=== PATIENT | female | born 1985 | race Caucasian/White ===

== ENCOUNTER 2017-01-05 15:29 | Emergency (ER) | payer MEDICAID, MEDICARE ==
[2017-01-05 15:29] VITALS: BMI 26.5
[2017-01-05 15:32] VITALS: PULSE 77; RESP 20; TEMP 97.7; O2SAT 98
[2017-01-05 15:33] VITALS: BP 107/67
--- NOTE | 2017-01-05 15:54 | C.PDOC ---
History Of Present Illness 31 year old female presents to Emergency Department for evaluation of intermittent bilateral knee and left shoulder pain described as aching for the past month. Notes taking Tylenol without significant relief. Denies trauma, injury, or change in sensation. Time Seen by Provider: 01/05/17 15:41 Chief Complaint (Nursing): Lower Extremity Problem/Injury History Per: Patient History/Exam Limitations: no limitations Onset/Duration Of Symptoms: Days, Intermittent Episodes Current Symptoms Are (Timing): Still Present Recent travel outside of the [place]: No Additional History Per: Patient Past Medical History Reviewed: Historical Data, Nursing Documentation, Vital Signs Vital Signs: Last Vital Signs Temp 97.7 F 01/05/17 15:29 Pulse 77 01/05/17 15:29 Resp 20 01/05/17 15:29 BP 107/67 01/05/17 15:32 Pulse Ox 98 01/05/17 15:54 Surgical History: - [facility] Procedures EXTRACTION OF POC, CLASSICAL, OPEN APPROACH (02/10/16) LOW CERVICAL (10/30/14) SURG INDUCT 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/30/14) Family History: States: Unknown Family Hx - Social History Hx Tobacco Use: No Hx Alcohol Use: No Hx Substance Use: No - Immunization History Hx Tetanus Toxoid Vaccination: No Hx Influenza Vaccination: No Hx Pneumococcal Vaccination: No Review Of Systems Constitutional: Negative for: Fever, Chills Musculoskeletal: Positive for: Shoulder Pain (left), Leg Pain (bilateral knee pain) Skin: Negative for: Rash, Bruising Neurological: Negative for: Weakness, Numbness Physical Exam - Physical Exam Appears: Non-toxic, No Acute Distress Skin: Warm, Dry, No Ecchymosis (no ecchymosis, erythema, or warmth to bilateral knees or left shoulder) Head: Atraumatic, Normacephalic Eye(s): bilateral: Normal Inspection Oral Mucosa: Moist Respiratory: No Accessory Muscle Use Extremity: Normal ROM (FROM at knee joints and left shoulder joint), No Tenderness, Capillary Refill (less than 2 seconds), No Deformity, No Swelling ( no swelling to knees of left shoulder) Extremity: Bilateral: Atraumatic, Normal Color And Temperature, Normal ROM Pulses: Left Radial: Normal, Right Radial: Normal Neurological/Psych: Oriented x3, Normal Speech, Normal Motor, Normal Sensation Gait: Steady ED Course And Treatment O2 Sat by Pulse Oximetry: 98 (on RA) Pulse Ox Interpretation: Normal Medical Decision Making Medical Decision Making: Patient with aching pain to knees and shoulder, no trauma. Exam was benign, no swelling, no erythema, no tactile warmth or other abnormality. Motrin PO was given. Patient advised to follow up with PCP or clinic for more care and workup for arthritis. Disposition Counseled Patient/Family Regarding: Diagnosis, Need For Followup, Rx Given - Disposition Referrals: [facility] at [facility] [Outside] Disposition: HOME/ ROUTINE Disposition Time: 15:54 Condition: STABLE Additional Instructions: Vaya a peña mdico o la clnica en 2-5 hood sin falta, para mas evaluacin. [place] los medicamentos jonny indicado. Volver a la cheng de emergencia en cualquier momento si los sntomas persisten o empeoran. 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 - Scribe Statement The provider has reviewed the documentation as recorded by the Eugenioibyrn Vergara All medical record entries made by the Scribe were at my direction and personally dictated by me. I have reviewed the chart and agree that the record accurately reflects my personal performance of the history, physical exam, medical decision making, and the department course for this patient. I have also personally directed, reviewed, and agree with the discharge instructions and disposition.
== END 2017-01-05 16:32 | disposition home or self-care (01) ==
LOC: C.ER 15:29
DX: M25.50 Pain in unspecified joint (principal)

== ENCOUNTER 2017-04-05 13:02 | Emergency (ER) | payer MEDICARE, MEDICAID ==
[2017-04-05 13:02] VITALS: BMI 26.5
[2017-04-05 13:15] VITALS: RESP 20
[2017-04-05] MEDS ORDERED: guaiFENesin 100 mg/5 ml Syrup UD PO STA (13:37)
--- NOTE | 2017-04-05 13:39 | C.PDOC ---
History Of Present Illness Zulema Awad is a 31 year old female, with no significant past medical history, who present to the emergency department complaining of fever, body aches, and malaise onset for x2 days. 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 She denies any abdominal pain, vomiting or diarrhea. No further medical complaints. PMD: None provided. Time Seen by Provider: 04/05/17 13:31 Chief Complaint (Nursing): ENT Problem History Per: Patient History/Exam Limitations: no limitations Onset/Duration Of Symptoms: Days (x2) Current Symptoms Are (Timing): Still Present Associated Symptoms: Fever, Other (body aches, malaise. ). denies: Vomiting, Diarrhea Ear Symptoms: Bilateral: None Past Medical History Reviewed: Historical Data, Nursing Documentation, Vital Signs Vital Signs: Last Vital Signs Temp 98.9 F 04/05/17 13:49 Pulse 97 H 04/05/17 13:49 Resp 20 04/05/17 13:49 BP 119/75 04/05/17 13:49 Pulse Ox 100 04/05/17 13:49 - Medical History PMH: No Chronic Diseases Surgical History: - [facility] Procedures EXTRACTION OF POC, CLASSICAL, OPEN APPROACH (02/10/16) LOW CERVICAL (10/30/14) SURG INDUCT 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/30/14) Family History: States: Unknown Family Hx - Social History Hx Tobacco Use: No Hx Alcohol Use: No Hx Substance Use: No - Immunization History Hx Tetanus Toxoid Vaccination: No Hx Influenza Vaccination: No Hx Pneumococcal Vaccination: No Review Of Systems Constitutional: Positive for: Fever, Malaise, Other (body aches) Gastrointestinal: Negative for: Vomiting, Abdominal Pain, Diarrhea Physical Exam - Physical Exam Appears: Well, No Acute Distress Skin: Normal Color, Warm, Dry Head: Atraumatic, Normacephalic Eye(s): bilateral: Normal Inspection, PERRL, EOMI Ear(s): Bilateral: Normal Nose: Normal Oral Mucosa: Moist Throat: Normal Neck: Normal ROM Chest: Symmetrical Cardiovascular: Rhythm Regular, No Murmur Respiratory: Normal Breath Sounds, No Wheezing Gastrointestinal/Abdominal: Normal Exam, Soft, No Tenderness, No Guarding, No Rebound Back: Normal Inspection, No CVA Tenderness, No Vertebral Tenderness, No Paraspinal Tenderness Extremity: Normal ROM, No Deformity, No Swelling Neurological/Psych: Oriented x3 ED Course And Treatment O2 Sat by Pulse Oximetry: 97 (RA) Pulse Ox Interpretation: Normal Progress Note: tamiflu, ibuprofen, robitussin Medical Decision Making Medical Decision Making: Initial Impression: Viral syndrome Initial Plan: --Motrin tab 600 mg PO --Robitussin 100 mg PO --Tamiflu Cap 75 mg PO --reevaluation empiric tx for flu has 2 children 1 and 2 yrs old @ home. instructed to CALL tankroom tender to prescribe prophylactic Tamiflu for both children WITHOUT bringing the children to the Massage Therapy Instructor nor Emergency department asymptomatic for risk of infection in office and ED settings (as described by CDC notices) Disposition Doctor Will See Patient In The: Office Counseled Patient/Family Regarding: Studies Performed, Diagnosis - Disposition Referrals: [facility] [Outside] Disposition: HOME/ ROUTINE Disposition Time: 13:38 Condition: GOOD Additional Instructions: sigue Tamiflu 75 mg dos veces al flores- anti-viral contral el Influenza (epidemico ) Sigue Dayquil/Nyquil o' cualquier equivalente due dice "cold and flu" para las sintomas cada 4-6 horas jonny recetado por el producto Sigue en la [facility] (gratis) jonny necessario Prescriptions: Oseltamivir [Tamiflu] 75 mg PO BID #9 cap Instructions: Influenza (ED) Forms: [facility] (Mohawk) Print Language: BHUTANESE - Clinical Impression Clinical Impression: Influenza-like illness - Scribe Statement Donal Kulkarni Provider Attestation: All medical record entries made by the Scribe were at my direction and personally dictated by me. I have reviewed the chart and agree that the record accurately reflects my personal performance of the history, physical exam, medical decision making, and the department course for this patient. I have also personally directed, reviewed, and agree with the discharge instructions and disposition.
[2017-04-05] MEDS ORDERED: guaiFENesin 100 mg/5 ml Syrup UD ONE ×2 (13:44→13:45)
[2017-04-05 13:49] VITALS: BP 119/75; PULSE 97; TEMP 98.9
[2017-04-05 15:09] VITALS: O2SAT 97
== END 2017-04-05 13:53 | disposition home or self-care (01) ==
LOC: C.ER 13:02
DX: J11.1 Influenza due to unidentified influenza virus with other respiratory manifestations (principal)

== ENCOUNTER 2018-01-09 12:12 | Emergency (ER) | payer MEDICARE, MEDICAID ==
[2018-01-09 12:12] VITALS: BMI 26.5
--- NOTE | 2018-01-09 13:00 | C.PDOC ---
History Of Present Illness 32 year old female presents to the ED for evaluation of sore throat, body aches, nasal congestion, runny nose, and cough for 2 days. Patient reports taking Tylenol for 2 days with no improvement, notes taking the last dose of Tylenol today at approximately 3am. Aches are diffuse. No dysphagia, odynophaiga or change in phonation. No neck stiffness. She notes having insurance, does not have PMD, and did not see a doctor for her current symptoms. Denies fever, vomiting, nausea, diarrhea, sick contact, smoking, drinking, and any other associated symptoms. HPI: Influenza Time Seen by Provider: 01/09/18 12:59 Chief Complaint: Flu-like Symptoms History Per: Patient Exam Limitations: no limitations Onset/Duration Of Symptoms: Days (x2) Past Medical History Reviewed: Historical Data, Nursing Documentation, Vital Signs Vital Signs: Last Vital Signs Temp 99.3 F 01/09/18 12:18 Pulse 95 H 01/09/18 12:18 Resp 18 01/09/18 12:18 BP 117/78 01/09/18 12:18 Pulse Ox 98 01/09/18 12:18 Surgical History: - [facility] Procedures EXTRACTION OF POC, CLASSICAL, OPEN APPROACH (02/10/16) LOW CERVICAL (10/30/14) SURG INDUCT 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/30/14) Family History: States: Unknown Family Hx - Social History Hx Tobacco Use: No Hx Alcohol Use: No Hx Substance Use: No - Immunization History Hx Tetanus Toxoid Vaccination: No Hx Influenza Vaccination: No Hx Pneumococcal Vaccination: No Review Of Systems Constitutional: Positive for: Other (body aches. ). Negative for: Fever, Chills, Sweats, Weakness, Malaise, Weight loss Eyes: Negative for: Pain, Vision Change ENT: Positive for: Nose Discharge, Nose Congestion, Throat Pain (sore. ). Negative for: Ear Pain, Ear Discharge, Nose Pain, Mouth Pain Cardiovascular: Negative for: Chest Pain, Palpitations, Edema Respiratory: Positive for: Cough. Negative for: Shortness of Breath, Pleuritic Pain, Wheezing Gastrointestinal: Negative for: Nausea, Vomiting, Abdominal Pain, Diarrhea, Constipation, Melena Genitourinary: Negative for: Dysuria, Frequency, Incontinence, Hematuria, Vaginal Discharge, Vaginal Bleeding Musculoskeletal: Negative for: Neck Pain, Shoulder Pain, Arm Pain, Back Pain, Hand Pain, Leg Pain, Foot Pain Skin: Negative for: Rash, Lesions Neurological: Negative for: Weakness, Numbness, Incoordination Psych: Negative for: Anxiety Physical Exam - Physical Exam Appears: Well, Non-toxic, No Acute Distress Skin: Warm, Dry Head: Atraumatic, Normacephalic Eye(s): bilateral: Normal Inspection, PERRL, EOMI Ear(s): Bilateral: Normal Nose: Normal, Discharge (rhinorrhea. ) Oral Mucosa: Moist Tongue: Normal Appearing Lips: Normal Appearing Teeth: Normal Dentition Gingiva: Normal Appearing Throat: Normal, No Erythema, No Exudate, No Drooling, No Mass Neck: Normal ROM, Trachea Midline, No Midline Cervical Tenderness, No Paracervical Tenderness, Supple Chest: Symmetrical, No Deformity Cardiovascular: Rhythm Regular, No Murmur Respiratory: Normal Breath Sounds, No Rales, No Rhonchi, No Wheezing Gastrointestinal/Abdominal: Normal Exam, Soft, No Tenderness Back: Normal Inspection, No CVA Tenderness, No Vertebral Tenderness, No Paraspinal Tenderness Extremity: Bilateral: Normal Color And Temperature, Normal ROM (x4) Pulses: Left Radial: Normal, Right Radial: Normal Neurological/Psych: Oriented x3, Normal Speech, Normal Cognition, Normal Cranial Nerves, No Cerebellar Signs, Normal Motor, Normal Sensation, Normal Reflexes Extremity: Right: No Drift, Left: No Drift, Upper: No Drift, Lower: No Drift Medical Decision Making Medical Decision Makin yr old female p/w cough, rhinorrhea, generalized body ache. No posterior lymphdenopathy. No change in phonation or dyphagia or odynphagia. No meningeal signs. Likely viral uri. 1405 labs unremarkable pt in NAD, pt notes improved w tylenol remains w/ out other complaints Lungs remain cta b/l clear for d/c home w/ f/u and return indications. pt agreeable. - ECG O2 Sat by Pulse Oximetry: 98 Disposition - Disposition Referrals: [facility] [Outside] [facility] [Outside] Disposition: HOME/ ROUTINE Disposition Time: 14:05 Condition: GOOD Additional Instructions: CONTINE THE TYLENOL WRITTEN ON THE BOTTLE BRANDT CALLES, thank you for letting us take care of you today. Your provider was Fracisco Cisneros and you were treated for COUGHING. The emergency medical care you received today was directed at your acute symptoms. If you were prescribed any medication, please fill it and take as directed. It may take several days for your symptoms to resolve. Return to the Emergency Department if your symptoms worsen, do not improve, or if you have any other problems. Please contact your doctor or call one of the physicians/clinics you have been referred to that are listed on the Patient Visit Information form that is included in your discharge packet. Bring any paperwork you were given at discharge with you along with any medications you are taking to your follow up visit. Our treatment cannot replace ongoing medical care by a primary care provider outside of the emergency department. Thank you for allowing the [facility] team to be part of your care today. If you had an X-Ray or CT scan: A Radiologist will review the ED reading if any change in treatment is needed we will contact you. If you had a blood, urine, or wound culture: It will take several days for the results, if any change in treatment is needed we will contact you. If you had an STI test: It will take 48 hours for the results. Please call after 1 week if you have not heard back. Instructions: Viral Upper Respiratory Infection, Adult (DC) Forms: [employer] (Jamaican) Print Language: INDONESIAN - Clinical Impression Clinical Impression: Viral URI - Scribe Statement The provider has reviewed the documentation as recorded by the Scribe (Tanya Appiah) Provider Attestation: All medical record entries made by the Scribe were at my direction and personally dictated by me. I have reviewed the chart and agree that the record accurately reflects my personal performance of the history, physical exam, medical decision making, and the department course for this patient. I have also personally directed, reviewed, and agree with the discharge instructions and disposition.
[2018-01-09 14:48] VITALS: BP 118/82; PULSE 89; RESP 20; TEMP 98.9
[2018-01-09 16:17] VITALS: O2SAT 98
== END 2018-01-09 14:49 | disposition home or self-care (01) ==
LOC: C.ER 12:12
DX: J06.9 Acute upper respiratory infection, unspecified (principal)

== ENCOUNTER 2018-04-17 21:41 | Emergency (ER) | payer MEDICAID, MEDICARE ==
[2018-04-17 21:42] VITALS: BMI 26.5
[2018-04-17 22:00] VITALS: BP 134/82; PULSE 98; RESP 20; TEMP 98.8; O2SAT 100
--- NOTE | 2018-04-17 23:48 | C.PDOC ---
History Of Present Illness 32 year old female presents with left lower toothache for the past 2 days. Denies facial swelling, neck swelling, or headache. Time Seen by Provider: 04/17/18 22:08 Chief Complaint (Nursing): Dental Pain History Per: Patient History/Exam Limitations: no limitations Onset/Duration Of Symptoms: Days (2) Current Symptoms Are (Timing): Still Present Quality: Positive for: Aching Recent travel outside of the [place]: No Past Medical History Reviewed: Historical Data, Nursing Documentation, Vital Signs Vital Signs: Last Vital Signs Temp 98.8 F 04/17/18 21:58 Pulse 98 H 04/17/18 21:58 Resp 20 04/17/18 21:58 BP 134/82 04/17/18 21:58 Pulse Ox 100 04/17/18 21:58 Surgical History: - [facility] Procedures EXTRACTION OF POC, CLASSICAL, OPEN APPROACH (02/10/16) LOW CERVICAL (10/30/14) SURG INDUCT 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/30/14) Family History: States: Unknown Family Hx - Social History Hx Tobacco Use: No Hx Alcohol Use: No Hx Substance Use: No - Immunization History Hx Tetanus Toxoid Vaccination: No Hx Influenza Vaccination: No Hx Pneumococcal Vaccination: No Review Of Systems ENT: Positive for: Mouth Pain. Negative for: Mouth Swelling Musculoskeletal: Negative for: Other (Neck swelling) Neurological: Negative for: Headache Physical Exam - Physical Exam Appears: Non-toxic Skin: Normal Color, Warm, Dry Head: Atraumatic, Normacephalic, No Swelling (Facial) Eye(s): bilateral: Normal Inspection Nose: Normal Oral Mucosa: Moist Tongue: Normal Appearing, No Swelling Lips: Normal Appearing Teeth: Other (Impacted left posterior molar) Gingiva: Other (Swelling and erythema surrounding impacted left posterior molar) Throat: Normal, No Erythema Neck: Normal, Supple, No Other (Swelling) Lymphatic: Adenopathy Neurological/Psych: Oriented x3, Normal Speech ED Course And Treatment O2 Sat by Pulse Oximetry: 100 (Room air) Pulse Ox Interpretation: Normal Progress Note: Motrin and penicillin administered. Patient resting comfortably in no acute distress, vitals are stable, will discharge home with Rx and instructions to follow up with dental clinic. Disposition - Disposition Referrals: [facility] [Outside] Disposition: HOME/ ROUTINE Disposition Time: 05:24 Condition: STABLE Additional Instructions: PLEASE FOLLOW UP WITH A DENTIST TAKE MEDICATIONS DIRECTED RETURN TO ER IF WORSE Prescriptions: Ibuprofen [Motrin Tab] 800 mg PO QID #30 tab Penicillin VK [Penicillin VK Tab] 2 tab PO BID #28 tab Instructions: Impacted Tooth (DC), Dental Pain (DC) Forms: [employer] 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 - Scribe Statement The provider has reviewed the documentation as recorded by the Scribyrn Soto All medical record entries made by the Nelsy were at my direction and personally dictated by me. I have reviewed the chart and agree that the record accurately reflects my personal performance of the history, physical exam, medical decision making, and the department course for this patient. I have also personally directed, reviewed, and agree with the discharge instructions and disposition.
== END 2018-04-17 22:33 | disposition home or self-care (01) ==
LOC: C.ER 21:41
DX: K01.1 Impacted teeth (principal)